=== PATIENT | female | born 1990 | race Caucasian/White ===

== ENCOUNTER 2019-03-10 19:41 | Emergency (ER) | payer OTHER ==
[~2019-03-10] VITALS: Ht 165.1 cm; Wt 63.5 kg
[2019-03-10] MEDS ORDERED: IV NORMAL SALINE 1000 ML BAG IV ONE (20:30)
[2019-03-10 20:47] LABS: BASOPHILS % (AUTO) 0.2 % (0.0-2.0); EOSINOPHILS % (AUTO) 0.1 % (0.0-7.0); HEMOGLOBIN 14.7 g/dL (10.9-14.3); LYMPHOCYTES # (AUTO) 1.1 K/uL (20.0-40.0); LYMPHOCYTES % (AUTO) 9.1 % (20.5-51.5); MEAN CORPUSCULAR HEMOGLOBIN 30.7 uug (24.7-32.8); MEAN CORPUSCULAR HGB CONC 33 g/dL (32.3-35.6); MEAN CORPUSCULAR VOLUME 91.8 fL (75.5-95.3); MONOCYTES # (AUTO) 0.6 K/uL (2.0-10.0); MONOCYTES % (AUTO) 4.6 % (0.0-11.0); NEUTROPHILS # (AUTO) 10.3 K/uL (1.8-8.9); PLATELET COUNT (AUTO) 243 K/uL (179-408); RED BLOOD CELL COUNT(AUTO) 4.79 MIL/uL (3.63-4.92)
[2019-03-10 20:52] LABS: CREATININE 0.7 mg/dL (0.6-1.3); POTASSIUM 3.8 mmol/L (3.5-5.1)
[2019-03-10 20:57] LABS: BILIRUBIN,DIRECT 0.1 mg/dL (0.0-0.2); BILIRUBIN,TOTAL 0.5 mg/dL (0.2-1.0); TOTAL PROTEIN, SERUM 8.8 g/dL (6.4-8.2)
--- NOTE | 2019-03-10 21:08 | NUR ---
PATIENT ANXIOUS AND STARTED IVF BELEIVES SHE MAY BE DEHYDRATED
--- NOTE | 2019-03-10 21:35 | NUR ---
IV removed. Catheter intact and site benign. Pressure and 4x4 gauze applied to site. No bleeding noted.
--- NOTE | 2019-03-10 21:36 | NUR ---
Patient discharged to home in stable conditon WITH MOTHER TAKING PATIENT HOME. Written and verbal after care instructions given. Patient verbalizes understanding of instructions. WALKED OUT OF ER WITH NO DISTRESS NOTED.
[2019-03-10 21:37] VITALS: BP 135/77
== END 2019-03-10 21:38 | disposition home or self-care (01) ==
LOC: ER 19:41
DX: R19.7 Diarrhea, unspecified (principal); R10.9 Unspecified abdominal pain; R11.0 Nausea; Z88.8 Allergy status to other drugs, medicaments and biological substances
CPT/HCPCS: 36415; 83690; 85025; A4663; J7030

== ENCOUNTER 2023-09-12 17:43 | Emergency (ER) | payer BC, OTHER ==
[~2023-09-12] VITALS: Ht 165.1 cm; Wt 61.7 kg
[2023-09-12] MEDS ORDERED: ACETAMINOPHEN 325 MG TABLET ONE (18:17)
[2023-09-12] MEDS ORDERED: KETOROLAC TROMETHAMINE 15 MG INJ ONE (18:17)
[2023-09-12] MEDS: KETOROLAC TROMETHAMINE 15 MG INJ IVP ONE (18:21)
[2023-09-12] MEDS: ACETAMINOPHEN 325 MG TABLET PO ONE (18:21)
[2023-09-12] MEDS: IV NORMAL SALINE 1000 ML BAG IV ONE (18:36)
[2023-09-12 20:15] VITALS: BP 120/80; TEMP 98; O2SAT 100
== END 2023-09-12 20:15 | disposition home or self-care (01) ==
LOC: ER 17:46
DX: R50.9 Fever, unspecified (principal); M79.10 Myalgia, unspecified site; Z88.1 Allergy status to other antibiotic agents
CPT/HCPCS: 99283; 96360; 96361; 93005; J7040; A4606; A4663; J1885